=== PATIENT | female | born 1970 | race Caucasian/White ===

== ENCOUNTER 2017-08-29 09:58 | Emergency (ER) | payer BC ==
[~2017-08-29] VITALS: Ht 175.3 cm; Wt 102.5 kg
[~2017-08-29 09:58] MED LIST: BACTRIM,SEPT1 TABLET PO; CLEOCIN300 MG PO; HYDROCHLOROTHIA25 MG PO; MOBIC7.5 MG PO; SERTRALINE HCL50 MG PO
[2017-08-29 10:32] LABS: BASOPHIL (%) 0.5 % (0-1); BASOPHIL COUNT 0.1 K/uL (0-0.1); EOSINOPHIL (%) 1.1 % (0-5); EOSINOPHIL COUNT 0.1 K/uL (0-0.3); HEMATOCRIT 40.3 % (36.0-46.0); HEMOGLOBIN 13.7 G/DL (11.9-15.5); IMMATURE GRANULOCYTE (%) 0.5 % (0.0-0.7); LYMPHOCYTE (%) 16.9 % (15-42); LYMPHOCYTE COUNT 1.8 K/uL (1.0-2.8); MCH 29.6 PG (29.0-34.0); MONOCYTE (%) 5.1 % (3-12); MONOCYTE COUNT 0.6 K/uL (0-0.8); NEUTROPHIL (%) 75.9 % (45-76); NEUTROPHIL COUNT 8.1 K/uL (1.8-6.4); PLATELET COUNT 291 K/uL (156-360); RBC DIS.WIDTH-SD 40.8 % (39-53); RED BLOOD COUNT 4.63 M/uL (3.80-5.20); WHITE BLOOD COUNT 10.7 K/uL (4.1-10.2)
[2017-08-29 10:42] LABS: CHLORIDE 103 mEq/L (99-109); POTASSIUM 3.5 mEq/L (3.7-5.4); SODIUM 138 mEq/L (136-147)
[2017-08-29 10:44] LABS: GLUCOSE 119 mg/dL (70-99)
[2017-08-29 10:48] LABS: CREATININE 0.7 mg/dL (0.6-1.3); GFR ESTIMATE (CALCULATED) > 59 mL/min/
[2017-08-29 10:49] LABS: UREA NITROGEN (BUN) 14 mg/dL (9-23)
[2017-08-29 10:56] LABS: QUANTITATIVE HCG < 4.0 MIU/ML
[2017-08-29 10:57] LABS: APPEARANCE CLEAR ((CLEAR)); BILIRUBIN NEGATIVE; BLOOD NEGATIVE; COLOR YELLOW ((YELLOW)); GLUCOSE (STRIP) NEGATIVE; KETONES NEGATIVE; LEUKOCYTES NEGATIVE; NITRITE NEGATIVE; PROTEIN (STRIP) NEGATIVE; SPECIFIC GRAVITY 1.014 (1.000-1.030); UROBILINOGEN 0.2 MG/DL (0.2-1.0)
[2017-08-29] MEDS ORDERED: NORCO 5/3251 TABLET PO (11:46)
[2017-08-29] MEDS ORDERED: FLAGYL500 MG PO (11:46)
[2017-08-29] MEDS ORDERED: CIPRO500 MG PO (11:46)
[2017-08-29 12:09] VITALS: BP 164/81
== END 2017-08-29 12:10 | disposition home or self-care (01) ==
LOC: EME 09:58
PROVIDERS: Emergency Medicine
DX: K57.92 Diverticulitis of intestine, part unspecified, without perforation or abscess without bleeding (principal); I10 Essential (primary) hypertension; F41.9 Anxiety disorder, unspecified; Z88.0 Allergy status to penicillin
CPT/HCPCS: 74176; 80048; 81003; 84702; 84702 90; 85025; 99281; 99285; J1885; J7040